=== PATIENT | female | born 1945 | race Caucasian/White ===

== ENCOUNTER → 2018-07-12 | Outpatient (CLI) | payer MEDICARE, OTHER ==
[~2018-07-12] MED LIST: CLIMARA TD; FIBER; IBUPROFEN 600600 M1 PO; LODINE XL400 MG PO; MEDROLDOSEPACK PO; MULTIVITAMINS1 EAC7 PO; PEPCID20 MG PO; TORADOL PO; TRIAMCINOLONE A15 G1 TP; ULTRAM 50MG TAB50 MG PO; VISTARIL 25 MG25 M1 PO; VITAMINS
== END ==
LOC: M.RAD 12:26
DX: Z12.31 Encounter for screening mammogram for malignant neoplasm of breast (principal)

== ENCOUNTER → 2019-11-30 | Outpatient (CLI) | payer MEDICARE, OTHER | LOC: M.RAD 11-23 08:50 | PROVIDERS: ATTEND Nurse Practitioner Family | DX: Z12.31 Encounter for screening mammogram for malignant neoplasm of breast (principal); N64.89 Other specified disorders of breast; M81.0 Age-related osteoporosis without current pathological fracture; M85.88 Other specified disorders of bone density and structure, other site ==

== ENCOUNTER → 2021-03-18 | Outpatient (CLI) | payer MEDICARE, OTHER | LOC: M.RAD 11:00 | PROVIDERS: ATTEND Family Medicine | DX: Z12.31 Encounter for screening mammogram for malignant neoplasm of breast (principal) ==